=== PATIENT | female | born 1985 ===

== ENCOUNTER 2021-10-07 01:29 | Emergency (ER) | payer OTHER ==
[2021-10-07 01:38] VITALS: TEMP 98
[2021-10-07 02:45] VITALS: BP 153/103; PULSE 69
== END 2021-10-07 02:45 | disposition home or self-care (01) ==
LOC: COL.ER 01:29
DX: K08.89 Other specified disorders of teeth and supporting structures (principal)

== ENCOUNTER 2021-10-07 18:03 | Emergency (ER) | payer OTHER ==
[~2021-10-07] VITALS: Ht 170.2 cm; Wt 86.4 kg
[2021-10-07 19:30] VITALS: TEMP 98.5
[2021-10-07 21:52] VITALS: BP 124/80; PULSE 88
== END 2021-10-07 21:52 | disposition home or self-care (01) ==
LOC: COL.ER 18:03
DX: K08.89 Other specified disorders of teeth and supporting structures (principal)